=== PATIENT | female | born 1990 | race Caucasian/White ===

== ENCOUNTER 2019-07-23 13:31 | Emergency (ER) | payer OTHER, SELFPAY ==
[2019-07-23 13:39] VITALS: BP 110/74; PULSE 79; RESP 18; TEMP 36.4; O2SAT 100
--- NOTE | 2019-07-23 13:39 | ED.URI ---
HPI - URI/Sore Throat General Chief Complaint: Ear Stated Complaint: ear pressure Time Seen by Provider: 07/23/19 13:39 Source: patient and RN notes reviewed History of Present Illness HPI Narrative: Patient is a 29-year-old female who presents the urgent care with complaints of left ear pressure for 2 days. Patient has been using a decongestion and Advil without much relief. Patient states she now has some decreased hearing in the left ear as well as a headache. Denies any other sinus symptoms. Denies of any fever. No other acute complaints. No acute distress noted. Patient read the plan of care. Related Data Allergies Allergy/AdvReac Type Severity Reaction Status Date / Time eye drop Allergy Unknown Uncoded 07/23/19 13:55 Review of Systems Review of Systems: Narrative: CONSTITUTIONAL: Denies fever, chills, or sweats. EYES: Denies visual changes, redness, or discharge. ENT: Reports of left ear pressure and mild hearing loss to the left ear CARDIOVASCULAR: Denies chest pain, palpitations, or edema. RESPIRATORY: Denies cough or dyspnea. GASTROINTESTINAL: Denies abdominal pain, nausea, vomiting, or diarrhea. GENITOURINARY: Denies dysuria or hematuria. SKIN: Denies rash or itching. MUSCULOSKELETAL: Denies back pain, joint pain, or myalgia. NEUROLOGIC: Reports of headache All other systems reviewed are negative, except as documented in HPI. PMFSH Comments At the time of my signature, I reviewed and agree with the nursing past medical, surgical, social, and family history. There is no relevant family history pertinent to the patient complaint. Exam Narrative: Exam Narrative: GENERAL: This is a well-nourished, well-developed patient, in no apparent distress. HEAD: normocephalic, atraumatic. EYES: PERRL. Sclera clear/white. Vision is grossly intact. EARS: External ears normal, auditory canals clear and without drainage, moderate fluid noted behind the left TM without otitis, right TMs normal without perforation. Hearing grossly intact. NOSE: External nose normal with no obvious nasal discharge, nares without redness, no rhinorrhea. THROAT: Mucous membranes moist NECK: Neck supple SKIN: warm, intact with no suspicious lesions or rash, good texture and turgor. NEURO: awake, alert, and oriented to person, place and time. There were no obvious focal neurologic abnormalities. EXTREMITIES: No clubbing, cyanosis, or edema. Course Vital Signs Vital signs: Vital Signs Temperature 97.6 F 07/23/19 13:39 Pulse Rate 79 07/23/19 13:39 Respiratory Rate 18 07/23/19 13:39 Blood Pressure 110/74 07/23/19 13:39 Pulse Oximetry 100 07/23/19 13:39 Temperature 97.6 F 07/23/19 13:39 Pulse Rate 79 07/23/19 13:39 Respiratory Rate 18 07/23/19 13:39 Blood Pressure 110/74 07/23/19 13:39 Pulse Oximetry 100 07/23/19 13:39 Reviewed MDM - URI/Sore Throat MDM Narrative Medical decision making narrative: Advised the patient to stop using Q-tips. Do not put anything in the ear such as water, peroxide, [id number] eardrops. May use warm wash rag over the left ear for comfort. Complete steroid regimen as prescribed. Make sure to eat and drink with the medication. Use Flonase nasal spray as directed nightly. If you develop any increase in symptoms associated with fever, nausea, vomiting?follow-up with your PCP. Follow-up with your PCP within 2 to 5 days or for worsening symptoms or failure to improve. Differential Diagnosis Differential diagnosis: Likely upper respiratory infection, otitis media, sinusitis, viral infection, bronchitis, influenza and pharyngitis Critical Care Time Critical Care Time Critical Care Time: No Discharge Plan Discharge Clinical Impression: Earache on left Patient Disposition: Home, Self-Care Condition: Stable Instructions: Antibiotic Form, Earache (ED) Additional Instructions: Advised the patient to stop using Q-tips. Do not put anything in the ear such as water, anette
== END 2019-07-23 14:10 | disposition home or self-care (01) ==
PROVIDERS: Emergency Provider Nurse Practitioner Family; PCP Internal Medicine
DX: H92.02 Otalgia, left ear (principal)
CPT/HCPCS: 99213; G0463

== ENCOUNTER 2020-12-07 09:32 | Emergency (ER) | payer OTHER, SELFPAY ==
--- NOTE | ~2020-12-07 | XR_ITS ---
EXAMINATION: NASAL BONES-3+VIEWS DATE: 12/07/2020 10:05 INDICATION: Cough and nasal drip TECHNIQUE: AP, Jones and lateral views of the paranasal sinuses were obtained. COMPARISON: None. FINDINGS: No fractures identified. Specifically the nasal bones and visualized lebron of the orbits and paranas al sinuses appear intact. Mild leftward deviation of the nasal septum. The paranasal sinuses and mas toid air cells appear well-pneumatized with no evident air-fluid levels. IMPRESSION: 1. Unremarkable study. No air-fluid levels in the well pneumatized paranasal sinuses. Reviewed, dictated and finalized at location A. IMPRESSION: 1. Unremarkable study. No air-fluid levels in the well pneumatized paranasal si nuses.
--- NOTE | ~2020-12-07 | XR_ITS ---
EXAMINATION: XR chest 2V DATE: 12/07/2020 10:05 INDICATION: Cough and nasal drip TECHNIQUE: frontal and lateral views of the chest were obtained. COMPARISON: None FINDINGS: The lungs are clear with no focal airspace opacities, pulmonary edema, pleural effusion or pneumothor ax. The cardiomediastinal silhouette is normal. Visualized bones and soft tissues are unremarkable. IMPRESSION: 1. Normal chest radiograph Reviewed, dictated and finalized at location A. IMPRESSION: 1. Normal chest radiograph
[2020-12-07 09:44] VITALS: BP 105/77; PULSE 85; RESP 18; TEMP 36.8; O2SAT 100
--- NOTE | 2020-12-07 10:32 | ED.URI ---
HPI - URI/Sore Throat General Chief Complaint: Upper Respiratory Infection Stated Complaint: Cough Source: patient and RN notes reviewed Limitations: no limitations History of Present Illness HPI Narrative: The vaccinated patient, a non-smoker/nondrinker school worker, presents with cough. Patient relates a least that half month history of scantly productive cough, she tested negative Covid last week; she has no pet triggers except smoker at home. No fever, wheezing/sneezing, reflux/acid taste; no loss of taste/smell, S OB, vomiting/diarrhea, CP. Discussed possible causes of persistent cough [infection, allergy, GI, etc.] will treat broadly Related Data Allergies Allergy/AdvReac Type Severity Reaction Status Date / Time No Known Allergies Allergy Verified 12/07/20 09:54 Review of Systems Review of Systems: General/Constitutional: No weight loss,fever Eyes: N0: Redness,discharge Ears/Nose/Throat: No: Epistaxis,ear discharge Respiratory: Denies: Hemoptysis Gastrointestinal: No Vomiting, Bleeding-rectal Skin: No Lumps, eruption Neurologic: No Focal Weakness,Sz Hematologic: Denies: Petechiae/Purpura Psychiatric: No: Suicida ideationl All Other Systems: Reviewed and Negative PMFSH Comments At time of signature, agree with nursing past medical, surgical, social and family history. There is no relevant family history pertinent to the presenting complaint Exam Narrative: General Appearance: Well appearing, Conjunctiva clear Ears: External ear normal Nose: Normal nose Mouth/Throat: Normal appearing, Normal lips, Supple Respiratory: Airway patent, No respiratory distress Cardiovascular: RRR Abdomen: Soft, Non-tender, Musculoskeletal: Full ROM Skin: Warm, Dry Neurological: A&O x3, Normal affect Course Vital Signs Vital signs: Vital Signs Temperature 98.2 F 12/07/20 09:44 Pulse Rate 85 12/07/20 09:44 Respiratory Rate 18 12/07/20 09:44 Blood Pressure 105/77 12/07/20 09:44 Pulse Oximetry 100 12/07/20 09:44 Temperature 98.2 F 12/07/20 09:44 Pulse Rate 85 12/07/20 09:44 Respiratory Rate 18 12/07/20 09:44 Blood Pressure 105/77 12/07/20 09:44 Pulse Oximetry 100 12/07/20 09:44 Discharge Plan Discharge Clinical Impression: Bronchitis Patient Disposition: Home, Self-Care Condition: Stable Instructions: Acute Bronchitis (ED) Prescriptions: New azithromycin 250 mg tablet See Rx Instructions .ROUTE .COMPLEX Qty: 6 RF: 0 benzonatate [Tessalon Perles] 100 mg capsule 100 mg PO TID Qty: 20 RF: 1 azelastine 137 mcg (0.1 %) aerosol,spray 137 mcg NASAL Q12H Qty: 30 RF: 0 albuterol sulfate [Ventolin HFA] 90 mcg/actuation HFA aerosol inhaler 2 puff INHALATION QID PRN (Reason: shortness of breath or wheezing) Qty: 8.5 RF: 1 codeine-guaifenesin 10-100 mg/5 mL liquid 7.5 ml PO HS PRN (Reason: cough) Qty: 118 RF: 0 Follow-up/Referrals: Amrik Gomez MD [Primary Care Provider] -
== END 2020-12-07 10:41 | disposition home or self-care (01) ==
PROVIDERS: Emergency Provider Emergency Medicine; PCP Internal Medicine
DX: J40 Bronchitis, not specified as acute or chronic (principal)
CPT/HCPCS: 70220; 71046; 99213; G0463

== ENCOUNTER 2021-07-26 07:59 | Emergency (ER) | payer OTHER, SELFPAY ==
[2021-07-26 08:06] VITALS: BP 116/84; PULSE 74; RESP 20; TEMP 36.9; O2SAT 100
--- NOTE | 2021-07-26 08:07 | ED.EAR ---
HPI - Ear Problem General Chief complaint: Ear Stated complaint: pressure behind ear Time Seen by Provider: 07/26/21 08:14 Source: patient and RN notes reviewed Mode of arrival: ambulatory Limitations: no limitations History of Present Illness HPI Narrative: 31-year-old female presents to concern for right ear pain and pressure for 2 weeks. She denies nasal congestion, rhinorrhea, sore throat, fever. Denies drainage to the ear or injury to the ear. Reports occasional muffled hearing. Reports she has been using antihistamine nasal spray which has not helped her symptoms MD Complaint: ear pain Related Data Allergies Allergy/AdvReac Type Severity Reaction Status Date / Time No Known Allergies Allergy Verified 07/26/21 08:05 Review of Systems Review of Systems: CONSTITUTIONAL: Denies malaise, chills, sweats, or fever. EYES: Denies visual changes, redness, or discharge. ENT: Denies rhinorrhea, congestion, sinus pain, and sore throat. Reports right ear pressure and occasional pain CARDIOVASCULAR: Denies chest pain, palpitations, or edema. RESPIRATORY: Denies cough. Denies dyspnea. GASTROINTESTINAL: Denies abdominal pain, nausea, vomiting, diarrhea SKIN: Denies rash or itching. MUSCULOSKELETAL: Denies myalgia. NEUROLOGIC: Denies headache. All systems reviewed & are unremarkable except as noted in HPI and below PMFSH Comments At time of signature, agree with nursing past medical, surgical, social and family history. There is no relevant family history pertinent to the presenting complaint Exam Narrative: GENERAL: Well-appearing, well-nourished, and in no acute distress. HEAD: Normocephalic EYES: PERRLA, conjunctivae clear ENT: Nares clear, clear discharge. Mucous membranes moist. TM pearly carballo with dull light reflex on the right, sharp on the left; no tragal tenderness. Oropharynx not erythematous without lesions. Tonsils not enlarged and without exudate, no drooling, no hoarseness, no trismus, uvula midline. NECK: Supple. No lymphadenopathy CHEST: Clear to auscultation, breath sounds equal. No wheezing, rhonchi, rales, or stridor. No respiratory distress, speaks in full sentences. HEART: Regular rate and rhythm. No murmur heard. SKIN: Warm, dry, no rash. NEURO: Alert and oriented x3. PSYCH: Normal mood and affect Course Course Emergency Course: Patient is aware of diagnosis, understands and agrees to treatment plan. Anticipatory guidance given. Patient agrees to follow-up as directed and is aware of reasons to seek care at the emergency department. Portions of this record may have been created with voice recognition software Level of Care: Express Care Visit Vital Signs Vital signs: Reviewed. Medical Decision Making MDM Narrative Medical decision making narrative: Differential diagnosis considered: Love virus, strep pharyngitis, allergic rhinitis, upper respiratory tract infection, sinusitis, rhinosinusitis, nasopharyngitis. viral pharyngitis, otitis media, otitis externa, otitis effusion, cerumen impaction, foreign body. Exam findings show no acute concerns or changes; patient is non-toxic appearing and is in no distress. Patient is appropriate for outpatient treatment and follow-up. Critical Care Time Critical Care Time Critical Care Time: No Discharge Plan Discharge Clinical Impression: Acute dysfunction of right eustachian tube Patient Disposition: Home, Self-Care Condition: Stable Instructions: Fluid In The Ear (Serous Otitis Media) (ED) Additional Instructions: Recommend antihistamine such as Benadryl at night time and Zyrtec or Moni during the day until symptoms improve Flonase or azelastine nasal spray, 2 sprays in each nostril once daily until symptoms improve Also, recommend symptomatic treatment includes: rest, fluids, and increase humidity of the air at home. Recommend Acetaminophen as directed on the bottle to reduce fever, pain Please schedule a follow-up visit with your personal physicia
== END 2021-07-26 08:26 | disposition home or self-care (01) ==
PROVIDERS: Emergency Provider Nurse Practitioner; PCP Internal Medicine
DX: H69.91 Unspecified Eustachian tube disorder, right ear (principal)
CPT/HCPCS: 99213; G0463

== ENCOUNTER 2023-03-24 16:41 | Emergency (ER) | payer OTHER, SELFPAY ==
--- NOTE | 2023-03-24 16:48 | ED.GENADULT ---
HPI - General Adult General Chief complaint: Skin/Abscess/Foreign Body Stated complaint: Lip Numbness Time Seen by Provider: 03/24/23 16:50 Source: patient, RN notes reviewed and old records reviewed Mode of arrival: ambulatory Limitations: no limitations History of Present Illness HPI narrative: 33-year-old female presents to the [facility] with right lower lip numbness that started at 6:00 a.m. this morning when she woke up. States she had no symptoms at midnight when she went to bed. States since 6:00 a.m. this morning patient reports that the whole right side of her face has been numb, tingling and feeling ?tight. ? Facial symmetry is noted. Patient denies any fevers, upper respiratory infection. No swelling noted No ecchymosis or erythema noted Patient denies any type of facial injections Reports a history of migraines but states this is not her typical migraine Patient reports she is concerned because it is not getting any better but getting worse since this morning Onset (ago): hour(s) (11) Treatments prior to arrival: none Related Data Home Medications Medication Instructions Recorded Confirmed norethindrone (contraceptive) 0.35 0.35 mg PO DAILY 03/24/23 03/24/23 mg tablet Allergies Allergy/AdvReac Type Severity Reaction Status Date / Time No Known Allergies Allergy Verified 03/24/23 16:46 Review of Systems Review of Systems: All systems reviewed & are unremarkable except as noted in HPI and below Constitutional: Constitutional: Reports no additional constitutional complaints Eyes: Eyes: Reports no additional eye complaints ENT: Reports system reviewed and no additional complaints, except as documented Cardiovascular: Cardiovascular: Reports no additional cardiovascular complaints, Denies chest pain and Denies dyspnea Respiratory: Respiratory: Reports no additional respiratory complaints, Denies chest congestion, Denies cough and Denies dyspnea Gastrointestinal: Gastrointestinal: Reports no additional gastrointestinal complaints, Denies abdominal pain, Denies nausea and Denies vomiting Musculoskeletal: Musculoskeletal: Reports no additional musculoskeletal complaints Integumentary/Breasts: Skin/Breast: Reports system reviewed and no additional complaints, except as docu Neurologic: Reports as per HPI and Reports numbness (Right-sided facial) Psychiatric: Psychiatric: Reports no additional psychiatric complaints Allergic/Immunologic: Allergic/Immunologic: Reports no additional allergic/immunologic complaints [facility] Past Medical History Medical History (Updated 03/24/23 @ 17:19 by Hansa Bergeron APRN) History of migraine Kidney stones Comments At the time of my signature, I reviewed and agree with the nursing past medical, surgical, social, and family history. There is no relevant family history pertinent to the patient complaint. Exam Const: General: cooperative, healthy appearing, comfortable, no acute distress, well developed, alert and well nourished Nutritional Appearance: well nourished Orientation/consciousness: patient oriented x3 Limitations: no limitations HENMT: Head: normal to inspection Ears: hearing grossly normal bilaterally, external ears normal, TM's normal bilaterally, EAC's normal, mastoids normal and no periauricular adenopathy Face/Nose/Sinus: Normal external nose present, Normal nares present, Normal nasal mucous membranes and turbinates present, normal facial exam, sinuses nontender, face symmetric, No ecchymosis and No erythema Face and sinus: normal facial exam and face symmetric Mouth: Yes Normal oral and palatal mucosa present, Yes lip normal and Yes moist mucous membranes Throat: posterior oropharynx normal and uvula midline Eyes: General: appearance normal, both eyes and all related structures Alignment and Position: alignment normal Periorbital: periorbital findings normal Pupils: Equal, round and reactive pupils present EOM: EOMs intact bilaterally Neck:
[2023-03-24 16:50] VITALS: BP 109/71; PULSE 86; RESP 20; TEMP 36.2; O2SAT 100
== END 2023-03-24 17:03 | disposition short-term general hospital (02) ==
PROVIDERS: Emergency Provider Nurse Practitioner; PCP Internal Medicine
DX: R20.0 Anesthesia of skin (principal)
CPT/HCPCS: 99212; G0463

== ENCOUNTER 2023-03-24 17:18 | Observation (INO) | payer OTHER, SELFPAY ==
--- NOTE | ~2023-03-24 | CT_ITS ---
EXAMINATION: CT brain wo con DATE: 03/24/2023 17:49 INDICATION: R. sided facial numbness . TECHNIQUE: Computed tomography (CT) of the head was performed without intravenous contrast. The mA wa s adjusted according to patient size. Iterative reconstruction technique was employed. The dose-lengt h product was 605.33 mGy-cm. COMPARISON: None. FINDINGS: No acute intracranial hemorrhage or extra-axial fluid collection. No hydrocephalus, mass, or herniation. No acute ischemic infarct. Unremarkable dural venous sinus attenuation. No acute osseous abnormality. The aerated spaces are clear. IMPRESSION: No acute intracranial process. Reviewed, dictated and finalized at location K. RINARIAN EPIDEMIOLOGIST
--- NOTE | ~2023-03-24 | CT_ITS ---
EXAMINATION: CTA brain carotid DATE: 03/24/2023 21:15 INDICATION: Worsening r sided facial numbness TECHNIQUE: Computed tomographic angiography (CTA) of the head and neck were performed with 100 mL Omn ipaque-350 intravenous contrast. Automated exposure control and iterative reconstruction technique we re employed. The dose-length product was 980.83 mGy-cm. Maximum intensity projection and volume rend ered 3D-reconstructions were created by the technologist on a separate workstation. COMPARISON: CT brain, same date. FINDINGS: CTA HEAD: No large vessel occlusion, aneurysm, high flow vascular malformation, nidus or extravasation. Symmetr ic parenchymal enhancement. Patent cerebral veins. CTA NECK: Aortic arch and proximal great vessels: Normal arch anatomy. No plaque. Right common carotid, carotid bifurcation, and internal carotid artery: No plaque.There is 0% stenosi s of the proximal right internal carotid artery relative to normal distal artery lumen diameter (NASC ET criteria). Left common carotid, carotid bifurcation, and internal carotid artery: No plaque.There is 0% stenosis of the proximal left internal carotid artery relative to normal distal artery lumen diameter (NASCET criteria). Vertebral arteries: No significant plaque or stenosis. Vertebral arteries co-dominant. Other findings: None. IMPRESSION: No large vessel occlusion. No significant carotid or vertebral artery stenosis. Reviewed, dictated and finalized at location K. HT ENGINEER INSPECTOR
--- NOTE | ~2023-03-24 | MR_ITS ---
EXAMINATION: MR brain/brain stem wo/w con DATE: 03/25/2023 09:19 INDICATION: Facial numbness TECHNIQUE: Magnetic resonance imaging (MRI) of the brain and brainstem was performed without and with intravenous contrast. Sequences included sagittal and axial T1-weighted SE, axial diffusion-weighted FS EPI ASSET, axial T2*-weighted GRE, axial T2-weighted FLAIR Propeller, and axial T2-weighted Prope ller. Postcontrast axial and coronal T1-weighted SE was obtained. Apparent diffusion coefficient (ADC ) maps were created. COMPARISON: None. CONTRAST: Multihance, 16 cc FINDINGS: There are no areas of restricted diffusion to suggest acute infarction. There is no acute h emorrhage seen on the T2*, a hemosiderin sensitive sequence. The ventricles are normal in size. There are no extra-axial collections. Flow voids are seen in the cerebral arteries on the T2-weighted seq uences consistent with their expected patency. Visualized orbits and soft tissues are unremarkable. There are no areas of abnormal enhancement on the post contrast images. IMPRESSION: 1. No acute findings. Reviewed, dictated and finalized at location F. LEMENT PROCESSOR IMPRESSION: 1. No acute findings.
--- NOTE | ~2023-03-24 | XR_ITS ---
EXAMINATION: XR chest 1V Exam Date/Time: 03/24/2023 17:40 ONYX CHIP TERRAZZO WORKER HISTORY: R. sided facial numbness STARTED THIS MORNING Comparison: 12/07/2020. RESULT: Lines, tubes, and devices: None. Lungs and pleura: Clear. Cardiomediastinal silhouette: Stable. Other: No acute osseous or upper abdominal finding. IMPRESSION: No acute cardiopulmonary process. Reviewed, dictated and finalized at location K. CHIP TERRAZZO WORKER
[2023-03-24 17:21] VITALS: BP 134/84; PULSE 80; RESP 17; TEMP 36.4; O2SAT 100
--- NOTE | 2023-03-24 17:32 | ECG_ITS ---
Measurements Intervals Ramer Rate: 74 P: 25 PA: 121 QRS: 43 QRSD: 80 T: 62 QT: 369 QTc: 411 Interpretive Statements SINUS RHYTHM WITH SINUS ARRHYTHMIA NORMAL ECG NO PREVIOUS ECG AVAILABLE FOR COMPARISON Electronically Signed On 03-24-2023 20:13:00 RADIOLOGY SERVICES MANAGER by Joe Hoffman D.O.
[2023-03-24 17:37] LABS: Glucose Point of Care 91 mg/dl (65-105)
[2023-03-24 17:54] LABS: Basophils Absolute Auto 0.1 K/mm3 (0.0-0.1); Basophils Percent Auto 0.7 % (0.2-1.2); Eosinophils Absolute Auto 0.1 K/mm3 (0-0.3); Eosinophils Percent Auto 0.7 % (0-4.4); Hematocrit 38.4 % (37.0-47.0); Hemoglobin 12.2 g/dL (12.0-15.0); Immature Granulocyte Absolute 0.02 K/mm3 (0.00-0.031); Immature Granulocyte Percent A 0.2 % (0-0.5); Lymphocytes Absolute Auto 3.19 K/mm3 (0.9-3.2); Mean Corpuscular HGB Conc 31.8 g/dl (32-36); Mean Corpuscular Hemoglobin 28.4 pg (26-34); Mean Corpuscular Volume 89.5 fl (80-100); Mean Platelet Volume 10.1 fl (7.4-10.4); Monocytes Absolute Auto 0.6 K/mm3 (0.1-0.6); Monocytes Percent Auto 7.3 % (2.6-8.5); Neutrophils Absolute Auto 4.7 K/mm3 (1.3-6.7); Neutrophils Percent Auto 54.1 % (45.5-73.1); Platelet Count Result 291 k/mm3 (150-375); Red Blood Count 4.29 M/mm3 (4.2-5.4); Red Cell Distribution Width 12.6 % (11.5-14.5); White Blood Count 8.6 K/mm3 (4.5-10.0)
[2023-03-24 18:09] LABS: INR 0.9; Prothrombin Time 12.2 Seconds (11.1-14.7)
[2023-03-24 18:10] LABS: Partial Thromboplastin Time 32.5 SECONDS (22.3-36.8)
[2023-03-24 18:12] LABS: Alanine Aminotransferase 18 U/L (6-35); Albumin Level 4.3 g/dL (3.5-5.1); Alkaline Phosphatase 76 U/L (38-126); Anion Gap 7 mmol/L (8-16); Aspartate Amino Transferase 28 U/L (14-36); Bilirubin,Total 0.3 mg/dL (0.2-1.3); Blood Urea Nitrogen 12 mg/dL (7-17); Calcium 9.5 mg/dL (8.4-10.2); Carbon Dioxide 26 mmol/L (22-30); Chloride 104 mmol/L (98-107); Estimated CRCL calculation 100 ml/min; Estimated Glomerular Filt Rate > 60; Glucose 99 mg/dL (65-110); Potassium 3.8 mmol/L (3.4-5.0); Sodium 137 mmol/L (137-145)
[2023-03-24 18:22] LABS: Troponin I < 0.012 ng/mL (0.000-0.034)
[2023-03-24 19:36] VITALS: BP 125/86; PULSE 82; PULSE 86; RESP 20; O2SAT 100
--- NOTE | 2023-03-24 20:31 | ED.GENADULT ---
HPI - General Adult General Chief complaint: Neuro Symptoms/Deficit Stated complaint: facial numbness Time Seen by Provider: 03/24/23 19:47 History of Present Illness HPI narrative: This is a 33-year-old female presenting ED with facial numbness. Patient says that she woke up this morning she had numbness around her R bottom lip. Throughout the day it then spread to her upper lip and now she has loss of sensation and a ?heavy feeling ?underneath her right eye. Patient was seen at an urgent care earlier today recommended she come to ER for further evaluation. Patient is denying any visual changes or eye pain. No urinary retention, no numbness tingling weakness facial droop difficulty speaking swallowing or dizziness. No history of MS. No trauma. Patient has a history of migraines. She currently has a bitemporal headache. That is not her typical migraine headache. Related Data Home Medications Medication Instructions Recorded Confirmed norethindrone (contraceptive) 0.35 0.35 mg PO DAILY 03/24/23 03/24/23 mg tablet Allergies Allergy/AdvReac Type Severity Reaction Status Date / Time No Known Allergies Allergy Verified 03/24/23 19:39 [facility] Past Medical History Medical History History of migraine Kidney stones Exam Narrative: APPEARANCE: No apparent distress. Head: atraumatic. EYES: EOMI, pupils equal and reactive. Central light reflex intact NOSE: Atraumatic NECK: Trachea midline RESPIRATORY: No increased rate of breathing, CTAB CARDIOVASCULAR: RRR, ABDOMINAL: Non-distended MUSCULOSKELETAl: No obvious deformities NEURO: Alert. Decreased sensation in CN V2 V3 on the right side. The rest of cranial nerves 2-12 grossly intact. sensation to light touch, motor function cerebellar function intact for 4 extremities. Gait exam was normal. SKIN:: Warm, dry. Normal color PSYCHIATRIC: Normal affect Course Vital Signs Vital signs: Vital Signs Temperature 97.6 F 03/24/23 17:21 Pulse Rate 80 03/24/23 17:21 Respiratory Rate 17 03/24/23 17:21 Blood Pressure 134/84 03/24/23 17:21 Pulse Oximetry 100 03/24/23 17:21 Oxygen Delivery Room Air 03/24/23 17:21 Temperature 97.6 F 03/24/23 17:21 Pulse Rate 86 03/24/23 19:36 Respiratory Rate 20 03/24/23 19:36 Blood Pressure 125/86 03/24/23 19:36 Pulse Oximetry 100 03/24/23 19:36 Oxygen Delivery Room Air 03/24/23 17:21 Medical Decision Making [facility] Narrative Medical decision making narrative: -Course: 33-year-old female presenting with progressive and worsening right-sided facial numbness. CTA and CT head negative. Discussed discharge versus admission for MRI and neuro evaluation and the patient is very uncomfortable going home as her symptoms continue to get worsen. Patient will be placed in observation for MRI and neuro evaluation in the morning. 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 CT head unremarkable. Chest x-ray normal. Independent EKG interpretation: Rhythm [sinus], Rate 74, [place] -[normal], [place] -[normal], QRS [narrow], QTC [normal], T waves -[negative for concerning inversions], ST Segments - [Negative for concerning elevations] Final interpretations: [Normal Sinus Rhythm] -Discussion of Management/Consultants: Elizabeth - Hospitalist -Shared decision making / Disposition:admitted. Vital Signs Vital Signs: Vital Signs Temperature 97.6 F 03/24/23 17:21 Pulse Rate 80 03/24/23 17:21 Respiratory Rate 17 03/24/23 17:21 Blood Pressure 134/84 03/24/23 17:21 Pulse Oximetry 100 03/24/23 17:21 Oxygen Delivery Room Air 03/24/23 17:21 Temperature
--- NOTE | 2023-03-24 21:56 | PM.IMHP ---
H&P: HPI History of Present Illness Date/Time: 03/24/23 21:56 Chief Complaint: face numbness Narrative: this is a 33-year-old female with no significant past medical history, presents to the emergency room with several hours of right-sided of her face numbness. Patient has been her usual state of health. Denies any vision changes, headaches, lightheadedness, dizziness, no focal sensorimotor deficit, no fevers no rigors no chills no cough no sputum production, no shortness of breath, no nausea no vomiting no abdominal pain no diarrhea, no gait disturbance, no speech disturbance. Preliminary workup has been essentially nonrevealing. Patient has been placed in observation for further evaluation management and treatment. EXAMINATION: CT brain wo con DATE: 03/24/2023 17:49 INDICATION: R. sided facial numbness . TECHNIQUE: Computed tomography (CT) of the head was performed without intravenous contrast. The mA was adjusted according to patient size. Iterative reconstruction technique was employed. The dose-length product was 605.33 mGy-cm. COMPARISON: None. FINDINGS: No acute intracranial hemorrhage or extra-axial fluid collection. No hydrocephalus, mass, or herniation. No acute ischemic infarct. Unremarkable dural venous sinus attenuation. No acute osseous abnormality. The? aerated spaces are clear. IMPRESSION:? No acute intracranial process. EXAMINATION:? XR chest 1V Exam Date/Time:? 03/24/2023 17:40 [employer] INSTRUCTOR HISTORY: R. sided facial numbness STARTED THIS MORNING ? Comparison:? 12/07/2020. RESULT: Lines, tubes, and devices:? None. Lungs and pleura:? Clear. Cardiomediastinal silhouette:? Stable. Other:? No acute osseous or upper abdominal finding. ? IMPRESSION: No acute cardiopulmonary process. EXAMINATION: CTA brain carotid DATE: 03/24/2023 21:15 INDICATION: Worsening r sided facial numbness TECHNIQUE: Computed tomographic angiography (CTA) of the head and neck were performed with 100 mL Omnipaque-350 intravenous contrast. Automated exposure control and iterative reconstruction technique were employed.? The dose-length product was 980.83 mGy-cm. Maximum intensity projection and volume rendered 3D-reconstructions were created by the technologist on a separate workstation. COMPARISON: CT brain, same date. FINDINGS: CTA HEAD: No large vessel occlusion, aneurysm, high flow vascular malformation, nidus or extravasation. Symmetric parenchymal enhancement. Patent cerebral veins. CTA NECK: Aortic arch and proximal great vessels: Normal arch anatomy. No plaque. Right common carotid, carotid bifurcation, and internal carotid artery: No plaque.There is 0% stenosis of the proximal right internal carotid artery relative to normal distal artery lumen diameter (NASCET criteria).? Left common carotid, carotid bifurcation, and internal carotid artery: No plaque.There is 0% stenosis of the proximal left internal carotid artery relative to normal distal artery lumen diameter (NASCET criteria). Vertebral arteries: No significant plaque or stenosis. Vertebral arteries co-dominant. Other findings: None. IMPRESSION: No large vessel occlusion. No significant carotid or vertebral artery stenosis. Review of Systems Review of Systems: Right side of the face numbness Constitutional: Constitutional: Denies chills, Denies fever(s), Denies malaise, Denies night sweats and Denies weakness Eyes: Eyes: Denies change in vision ENT: Denies dysphagia, Denies vertigo, Denies dizziness and Denies odynophagia Cardiovascular: Cardiovascular: Denies chest pain, Denies radiating jaw, neck or arm pain and Denies palpitations Respiratory: Respiratory: Denies chest congestion, Denies cough, Denies pain on inspiration and Denies dyspnea Gastrointestinal: Gastrointestinal: Denies abdominal pain, Denies dyspepsia, Denies heartburn, Denies diarrhea, Denies nausea and Denies vomiting Genitourinary: Genitourin
[2023-03-24 22:27] VITALS: BP 129/92; PULSE 91; RESP 18; O2SAT 100
[2023-03-24 23:42] VITALS: BP 133/88; PULSE 99; RESP 20; TEMP 36.6; O2SAT 99; BMI 34.0
--- NOTE | 2023-03-24 23:49 | PC.NURSE ---
This patient, Aaliyah Morales, was admitted to [facility] Surg Room 303-01. Patient/family oriented to hospital policies and general routines including ID bracelet, bed and alarms, visiting hours, pain management, procedures, bathroom and other care routines, personal items, smoking policy, room service/diet, and visiting hours. Information on how to activate the Rapid Response Team has been discussed. Patient/Family are encouraged to report perceived risks to care and to ask questions if they do not understand what they are told or what they should do.
[2023-03-25 05:33] VITALS: BP 127/78; PULSE 79; RESP 20; TEMP 36.4; O2SAT 99
[2023-03-25 08:00] VITALS: PULSE 71
--- NOTE | 2023-03-25 11:41 | PM.DS ---
DS: Admitting Diagnosis Discharge Date 03/25/23 Admitting Diagnosis facial numbness DS: Discharge Diagnosis Discharge Diagnosis (1) Numbness and tingling of right face: Code(s): R20.0 - Anesthesia of skin; R20.2 - Paresthesia of skin Status: Acute Assessment and Plan: place in observation neurochecks q.4 CTA of head and neck reviewed CT of the head reviewed MRI of the brain in a.m. DS: Summary Hospital Course Hospital Course: 33-year-old female presenting ED with facial numbness.? Patient says that she woke up this morning she had numbness around her R bottom lip.? Throughout the day it then spread to her upper lip and now she has loss of sensation and a ?heavy feeling ?underneath her right eye.? Patient was seen at an urgent care earlier today recommended she come to ER for further evaluation. Head and neck CTA as well as brain MRI all within normal limits. TSH and B12 were within normal limits. Patient was discharged in stable condition with close outpatient follow-up. Please see above and med rec for details. Time Spent with Patient Time attestation: Total time spent providing and/or coordinating discharge services: DS: Data Data Completed and Pending Labs on day of discharge: Labs from last 24 hours 03/24/23 03/24/23 17:37 17:35 WBC 8.6 RBC 4.29 Hgb 12.2 Hct 38.4 MCV 89.5 MCH 28.4 MCHC 31.8 L RDW 12.6 Plt Count 291 MPV 10.1 Immature Gran % (Auto) 0.2 Neut % (Auto) 54.1 Lymph % (Auto) 37.0 [place] % (Auto) 7.3 Eos % (Auto) 0.7 Baso % (Auto) 0.7 Lymph # (Auto) 3.19 [place] # (Auto) 0.6 Eos # (Auto) 0.1 Baso # (Auto) 0.1 Abs Immat Gran (auto) 0.02 Absolute Neuts (auto) 4.7 Absolute Nucleated RBC 0.0 Nucleated RBC % 0.0 PT 12.2 INR 0.9 APTT 32.5 Sodium 137 Potassium 3.8 Chloride 104 Carbon Dioxide 26 Anion Gap 7 L BUN 12 Creatinine 0.70 Estim Creat Clear Calc 100 Estimated GFR > 60 Glucose 99 POC Capillary Glucose 91 Calcium 9.5 Total Bilirubin 0.3 AST 28 ALT 18 Alkaline Phosphatase 76 Troponin I < 0.012 Total Protein 8.0 Albumin 4.3 Discharge Plan Discharge Attending physician on discharge: Iliana Mancilla Consulting providers: Joe Hoffman; Lester Munoz; Dante Mcdonald Discharging Clinician: Iliana Mancilla Patient Disposition: Home, Self-Care Activity: as tolerated Diet: as tolerated Patient Instructions: Antibiotic Form Stand Alone Forms: General Discharge Information Follow-up/Referrals: Amrik Gomez MD [Primary Care Provider] - Darnell Serna MD [Physician] - Discharge Medications: Continued norethindrone (contraceptive) 0.35 mg tablet 0.35 mg PO DAILY Date of admission: 03/24/23 21:50 Primary Care Provider: Amrik Gomez Admitting Provider: Reji Johnson V. Attending physician on admission: Iliana Mancilla Condition: Stable
[2023-03-25 12:00] VITALS: PULSE 92
[2023-03-25 13:38] LABS: Folic Acid 14.1 ng/mL (2.76->20)
== END 2023-03-25 13:06 | disposition home or self-care (01) ==
LOC: ANHED 21:41 → ANH3MEDSUR 23:16
PROVIDERS: Emergency Medicine; Admitting Provider Internal Medicine; Emergency Provider Emergency Medicine; PCP Internal Medicine; Visit Provider Student in an Organized Health Care Education/Training Program
DX: R20.0 Anesthesia of skin (principal); R20.2 Paresthesia of skin; R51.9 Headache, unspecified; Z79.3 Long term (current) use of hormonal contraceptives
CPT/HCPCS: 36415; 70450; 70496; 70498; 70553; 71045; 80053; 81025; 82607; 82746; 82948; 84443; 84484; 85025; 85610; 85730; 93005; 99285; A9577; G0378; Q9967